=== PATIENT | female | born 1965 | race Caucasian/White ===

== ENCOUNTER 2019-02-05 11:16 | Emergency (ER) | payer BC ==
[2019-02-05 11:34] VITALS: BP 155/84
--- NOTE | 2019-02-05 11:55 | UC ---
Knee Pain HPI - HPI Summary HPI Summary: Family dog tripped patient as she was coming in the door last evening ([employer] ) which caused patient to fall onto left knee. Tetanus UTD - History of Current Complaint Chief Complaint: UCLowerExtremity Stated Complaint: LEFT KNEE PAIN Time Seen by Provider: 02/05/19 11:54 Hx Obtained From: Patient Hx Last Menstrual Period: last month ?: No Onset/Duration: Sudden Onset Severity Initially: Mild Severity Currently: Moderate Pain Intensity: 8 Character: Dull, Aching, Throbbing Aggravating Factor(s): Movement, Weight Bearing Alleviating Factor(s): Nothing Associated Signs And Symptoms: Positive: Swelling, Redness, Bruising Able to Bear Weight: Yes - But with a lot of pain. - Allergies/Home Medications Allergies/Adverse Reactions: Allergies Allergy/AdvReac Type Severity Reaction Status Date / Time No Known Allergies Allergy Verified 02/05/19 11:34 Home Medications: Home Medications Lisinopril TAB* [Prinivil TAB*] 20 mg PO DAILY 02/05/19 [History Confirmed 02/05] Multivitamin [Multivitamins] 1 cap PO DAILY 02/05/19 [History Confirmed 02/05/19 ] Venlafaxine HCl [Effexor XR-] 37.5 mg PO DAILY 02/05/19 [History Confirmed 02/05] PMH/Surg Hx/FS Hx/Imm Hx Previously Healthy: Yes Cardiovascular History: Hypertension Psychological History: Anxiety - Surgical History Surgical History: Yes Surgery Procedure, Year, and Place: tubes tied. 3 c sections - Family History Known Family History: Positive: Non-Contributory - Social History Lives: With Family Alcohol Use: Daily Substance Use Type: None Smoking Status (MU): Never Smoked Tobacco Review of Systems All Other Systems Reviewed And Are Negative: Yes Skin: Positive: Bruising - Mild bruise this morning. Motor: Positive: Decreased ROM Neurovascular: Positive: Negative Musculoskeletal: Positive: Decreased ROM, Other: - swelling this morning of left knee Is Patient Immunocompromised?: No Physical Exam Triage Information Reviewed: Yes Appearance: Well-Appearing, No Pain Distress, Well-Nourished Vital Signs: Initial Vital Signs Temp 99.4 F 02/05/19 11:27 Pulse 82 02/05/19 11:27 Resp 18 02/05/19 11:27 BP 155/84 02/05/19 11:27 Pulse Ox 100 02/05/19 11:27 Vital Signs Reviewed: Yes Musculoskeletal: Positive: Strength Intact, ROM Limited @ - Mild flexion and extension, decreased due to pain and mild swelling left knee. Neurological: Positive: Alert, Muscle Tone Normal, Other: - Good periph pulses, neurosensation, cap refill, knee swollen, patellar and knee ligaments feel intact Psychological Exam: Normal Skin: Positive: Other - Mild redness and swelling to left knee. Small abrasion present to anterior knee over patella. Knee Pain Course/Dx - Course Course Of Treatment: Left Knee x-ray:Indication: Left knee injury. 4 views left knee demonstrate no joint effusion. Soft tissue swelling is noted superficial to the patella and infrapatellar tendon. IMPRESSION: Soft tissue swelling without definite fracture. An Bal wrap and knee immobilizer was placed on the patient. She is to ice and elevate the next 2 days and follow up with ortho tomorrow by phone to make an appointment. - Differential Dx/Diagnosis Provider Diagnosis: Left knee sprain Discharge ED - Sign-Out/Discharge Documenting (check all that apply): Patient Departure All imaging exams completed and their final reports reviewed: Yes - Discharge Plan Condition: Fair Disposition: HOME Patient Education Materials: Knee Sprain (ED) Forms: *Work Release Referrals: Rafy Roberts MD [Primary Care Provider] - Livan Bullock MD [Medical Doctor] - Barak Roman MD [Medical Doctor] - Additional Instructions: Elevate and ice intermittently throughout the day today and tomorrow. Definite follow up with the orthopedist on Wednesday...call to make an appointment. No work until cleared by the orthopedist. - Billing Disposition and Condition Condition: FAIR Disposition: Home
[2019-02-05] MEDS ORDERED: Acetaminophen TAB* 325 MG PO ONE (11:59)
== END 2019-02-05 13:09 | disposition home or self-care (01) ==
LOC: UCCORT 11:16
DX: S83.8X2A Sprain of other specified parts of left knee, initial encounter (principal); I10 Essential (primary) hypertension; F41.9 Anxiety disorder, unspecified; Z79.899 Other long term (current) drug therapy; W01.0XXA Fall on same level from slipping, tripping and stumbling without subsequent striking against object, initial encounter; Y92.9 Unspecified place or not applicable
CPT/HCPCS: 99212; A9270-GY; G0463